=== PATIENT | male | born 1965 | race Caucasian/White ===

== ENCOUNTER 2021-09-10 16:54 | Emergency (ER) | payer SELFPAY ==
[~2021-09-10] VITALS: Ht 190 cm; Wt 84.0 kg
[2021-09-10 17:05] LABS: BASOPHILS # (AUTO) 0.1 10^3/uL (0.0-0.1); BASOPHILS % (AUTO) 1 % (0-10); EOSINOPHILS % (AUTO) 0 % (0-10); HEMATOCRIT 44 % (40-54); HEMOGLOBIN 15.1 g/dL (13.3-17.7); LYMPHOCYTES # (AUTO) 4.3 10^3/uL (1.0-4.0); LYMPHOCYTES % (AUTO) 50 % (12-44); MEAN CORPUSCULAR HEMOGLOBIN 29 pg (25-34); MEAN CORPUSCULAR HGB CONC 35 g/dL (32-36); MEAN CORPUSCULAR VOLUME 85 fL (80-99); MEAN PLATELET VOLUME 9.7 fL (9.0-12.2); MONOCYTES # (AUTO) 0.7 10^3/uL (0.0-1.0); MONOCYTES % (AUTO) 8 % (0-12); NEUTROPHILS # (AUTO) 3.6 10^3/uL (1.8-7.8); NEUTROPHILS % (AUTO) 41 % (42-75); PLATELET COUNT 248 10^3/uL (130-400); WHITE BLOOD COUNT 8.6 10^3/uL (4.3-11.0)
[2021-09-10 17:24] LABS: ALANINE AMINOTRANSFERASE 92 U/L (0-55); ALBUMIN 4.4 GM/DL (3.2-4.5); ALKALINE PHOSPHATASE 62 U/L (40-136); BILIRUBIN,TOTAL 0.4 MG/DL (0.1-1.0); BUN/CREATININE RATIO 12; CALCIUM 9.1 MG/DL (8.5-10.1); CARBON DIOXIDE 19 MMOL/L (21-32); CHLORIDE 103 MMOL/L (98-107); CREATININE SERUM 0.77 MG/DL (0.60-1.30); GFR ESTIMATED 105; GLUCOSE 115 MG/DL (70-105); MAGNESIUM 2.2 MG/DL (1.6-2.4); POTASSIUM 3.6 MMOL/L (3.6-5.0); SODIUM 138 MMOL/L (135-145); TOTAL PROTEIN 7.7 GM/DL (6.4-8.2)
--- NOTE | 2021-09-10 17:31 | ED Chest Pain ---
General Chief Complaint: Chest Pain Stated Complaint: CHEST PAIN Nursing Triage Note: PT ARRIVES TO ER WITH C/O CP THAT STARTED AROUND 1600 AND DIZZINESS AROUND 1000 TODAY. PT WAS AT WORK WHEN IT STARTED. HE LEFT WORK AND WENT TO THE [employer] STORE AND BOUGHT 1 PINT OF WHISKEY TO SEE IF HE COULD GET THE PAIN TO GO AWAY. PT ALSO FELT SWEATY AND NAUSEOUS WHEN IT CAME ON. PT IS NOT CURRENTLY IN ANY PAIN Source: patient Exam Limitations: no limitations (ROMY ZARAGOZA APRN) History of Present Illness Date Seen by Provider: Sep 10, 2021 Time Seen by Provider: 17:00 Initial Comments To ER with reports of shortness of breath and sharp central chest pain today. The pain has been intermittent. He took 2 full dose aspirin while at work at [employer]. EMS gave 1 nitroglycerin which alleviated his pain totally. He bought a pint of whiskey and drank some of it thinking it might help with his pain as well. He does have a history of alcohol use disorder for which she was admitted to [facility] in [place] in April of this year. He had a recent cardiac catheterization there this year which showed mild nonobstructive coronary disease he does have hypertension hyperlipidemia does not smoke and is not diabetic Timing/Duration: 4-6 hours Severity/Quality: moderate Radiation: no radiation Activities at Onset: none ASA po MEDICAL CODING SPECIALIST: No NTG SL MEDICAL CODING SPECIALIST: No (ROMY ZARAGOZA APRN) Allergies and Home Medications Patient Home Medication List Home Medication List Reviewed: Yes (ROMY ZARAGOZA APRN) Pantoprazole Sodium (Protonix) 40 Mg Tablet., 40 MG PO DAILY Prescribed by: ROMY ZARAGOZA on 09/10/212014 Review of Systems Review of Systems Constitutional: see HPI EENTM: No Symptoms Reported Respiratory: No Symptoms Reported Cardiovascular: See HPI, Chest Pain Gastrointestinal: No Symptoms Reported Genitourinary: No Symptoms Reported Musculoskeletal: no symptoms reported Skin: no symptoms reported Psychiatric/Neurological: No Symptoms Reported Endocrine: No Symptoms Reported Hematologic/Lymphatic: No Symptoms Reported (ROMY ZARAGOZA APRN) Past Gklzlvm-Puqzsu-Cbrzjy Hx Patient Social History Tobacco Use?: No Substance use?: No Alcohol Use?: Yes Alcohol type: Hard Liquor Alcohol Frequency: Several times a month Pt feels they are or have been: No (ROMY ZARAGOZA APRN) Immunizations Up To Date Influenza Vaccine Up-to-Date: No; Not Current (ROMY ZARAGOZA APRN) Physical Exam Vital Signs Vital Signs - First Documented 09/10/21 16:54 Temp 36.6 Pulse 96 Resp 18 B/P (MAP) 126/100 (109) Pulse Ox 97 O2 Delivery Room Air (GAURANG HE MD) Vital Signs Capillary Refill : Less Than 3 Seconds (ROMY ZARAGOZA APRN) Height, Weight, BMI Height: '" Weight: lbs. oz. kg; 23.00 BMI Method: General Appearance: No Apparent Distress, WD/WN HEENT: PERRL/EOMI, TMs Normal Respiratory: Normal Breath Sounds, No Accessory Muscle Use, No Respiratory Distress Cardiovascular: Regular Rate, Rhythm, Normal Peripheral Pulses Gastrointestinal: Normal Bowel Sounds, Non Tender, Soft Extremity: Normal Capillary Refill, Normal Inspection Neurologic/Psychiatric: Alert, Oriented x3 Skin: Normal Color, Warm/Dry (ROMY ZARAGOZA APRN) Progress/Results/Core Measures Results/Orders Lab Results Laboratory Tests Test 09/10/21 16:35 09/10/21 19:05 Range/Units White Blood Count 8.6 4.3-11.0 10^3/uL Red Blood Count 5.16 4.30-5.52 10^6/uL Hemoglobin 15.1 13.3-17.7 g/dL Hematocrit 44 40-54 % Mean Corpuscular Volume 85 80-99 fL Mean Corpuscular Hemoglobin 29 25-34 pg Mean Corpuscular Hemoglobin Concent 35 32-36 g/dL Red Cell Distribution Width 16.1 H 10.0-14.5 % Platelet Count 248 130-400 10^3/uL Mean Platelet Volume 9.7 9.0-12.2 fL Immature Granulocyte % (Auto) 0 % Neutrophils (%) (Auto) 41 L 42-75 % Lymphocytes (%) (Auto) 50 H 12-44 % Monocytes (%) (Auto) 8 0-12 % Eosinophils (%) (Auto) 0 0-10 % Basophils (%) (Auto) 1 0-10 % Neutrophils # (Auto) 3.6 1.8-7.8 10^3/uL Lymphocytes # (Auto) 4.3 H 1.0-4.0 10^3/uL Monocytes # (Auto) 0.7 0.0-1.0 10^3/uL Eosinophils # (Auto) 0.0 0.0-0.3 10^3/uL Basophils # (Auto) 0.1 0.0-0.1 10^3/uL Immature Granulocyte # (Auto) 0.0 0.0-0.1 10^3/uL Prothrombin Time 13.7 12.2-14.7 SEC INR Comment 1.0 0.8-1.4 Activated Partial Thromboplast Time 30 24-35 SEC Sodium Level 138 135-145 MMOL/L Potassium Level 3.6 3.6-5.0 MMOL/L Chloride Level 103 98-107 MMOL/L Carbon Dioxide Level 19 L 21-32 MMOL/L Anion Gap 16 H 5-14 MMOL/L Blood Urea Nitrogen 9 7-18 MG/DL Creatinine 0.77 0.60-1.30 MG/DL Estimat Glomerular Filtration Rate 105 BUN/Creatinine Ratio 12 Glucose Level 115 H 70-105 MG/DL Calcium Level 9.1 8.5-10.1 MG/DL Corrected Calcium 8.8 8.5-10.1 MG/DL Magnesium Level 2.2 1.6-2.4 MG/DL Total Bilirubin 0.4 0.1-1.0 MG/DL Aspartate Amino Transf (AST/SGOT) 103 H 5-34 U/L Alanine Aminotransferase (ALT/SGPT) 92 H 0-55 U/L Alkaline Phosphatase 62 40-136 U/L Myoglobin 50.1 10.0-92.0 NG/ML Troponin I < 0.028 < 0.028 <0.028 NG/ML B-Type Natriuretic Peptide 10.8 <100.0 PG/ML Total Protein 7.7 6.4-8.2 GM/DL Albumin 4.4 3.2-4.5 GM/DL Serum Alcohol 178 H <10 MG/DL (GAURANG HE MD) Vital Signs/I&O 09/10/21 09/10/21 16:54 20:30 Temp 36.6 36.6 Pulse 96 84 Resp 18 18 B/P (MAP) 126/100 (109) 141/100 Pulse Ox 97 97 O2 Delivery Room Air Room Air (GAURANG HE MD) Blood Pressure Mean: 109 Departure Communication (Admissions) 2021 he remains chest pain-free as he has been during his entire ER stay. (ROMY ZARAGOZA APRN) Impression Primary Impression: Chest pain Disposition: 01 HOME, SELF-CARE Condition: Stable Departure-Patient Inst. Decision time for Depature: 20:14 (ROMY ZARAGOZA APRN) Referrals: IVORY PAREDES MD FACP FAC CCDS IGOR FERRERA MD, DAVID L JR, MD Patient Instructions: Chest Pain Add. Discharge Instructions: . Acid head up operator as directed. Follow-up with your doctor next week. Return to ER for any concerns. Call dukey rider of your choosing to make an appointment to be seen. All discharge instructions reviewed with patient and/or family. Voiced understanding. Scripts Pantoprazole Sodium (Protonix) 40 Mg Tablet. 40 MG PO DAILY, #20 TAB Prov: ROMY ZARAGOZA APRN 09/10/21 ATTENDING PHYSICIAN NOTE: I was physically present as attending physician in the emergency department during the care of this patient, but I was not directly involved in the decision making or delivery of care for this patient. (GAURANG HE MD) ROMY ZARAGOZA APRN Sep 10, 2021 17:31 GAURANG HE MD Sep 11, 2021 04:54
[2021-09-10 17:45] LABS: PROTHROMBIN TIME PATIENT 13.7 SEC (12.2-14.7)
--- NOTE | 2021-09-10 18:01 | Diagnostic Imaging Report ---
INDICATION: Chest pain and dizziness. TIME OF EXAM: 5:28 PM COMPARISON: No prior studies are available for comparison. FINDINGS: The heart size is normal. The pulmonary vascularity is unremarkable. The lungs are clear. No infiltrate, effusion or pneumothorax is detected. IMPRESSION: No acute cardiopulmonary process is detected. Dictated by: Dictated on workstation # [id number]
[2021-09-10] MEDS ORDERED: PANT40TA2 PO (20:15)
[2021-09-10 20:30] VITALS: BP 141/100
== END 2021-09-10 20:30 | disposition home or self-care (01) ==
LOC: ER 16:55
DX: R07.9 Chest pain, unspecified (principal); I10 Essential (primary) hypertension
CPT/HCPCS: 71045; 80053; 83735; 83874; 83880; 84484; 85025; 85610; 85730; 93005; 93041; 99284; G0480; 36415; 80320